=== PATIENT | female | born 1940 | race Caucasian/White ===

== ENCOUNTER → 2018-10-26 | Outpatient (CLI) | payer MEDICARE, OTHER | LOC: MAMMO 10:36 | DX: Z12.31 Encounter for screening mammogram for malignant neoplasm of breast (principal) ==

== ENCOUNTER → 2019-11-01 | Outpatient (CLI) | payer MEDICARE, OTHER | LOC: MAMMO 13:34 | DX: Z12.31 Encounter for screening mammogram for malignant neoplasm of breast (principal) ==

== ENCOUNTER → 2020-10-11 | Day surgery (SDC) | payer MEDICARE, OTHER | LOC: MSO 07:49 | DX: K21.00 Gastro-esophageal reflux disease with esophagitis, without bleeding (principal); K22.2 Esophageal obstruction; J30.9 Allergic rhinitis, unspecified; E78.5 Hyperlipidemia, unspecified; M19.90 Unspecified osteoarthritis, unspecified site; K44.9 Diaphragmatic hernia without obstruction or gangrene; Z85.3 Personal history of malignant neoplasm of breast; Z90.89 Acquired absence of other organs; Z85.828 Personal history of other malignant neoplasm of skin; Z79.899 Other long term (current) drug therapy; Z92.21 Personal history of antineoplastic chemotherapy | CPT/HCPCS: 00731; C1769; J2704; J7120 ==

== ENCOUNTER → 2020-11-01 | Outpatient (CLI) | payer MEDICARE, OTHER | LOC: MAMMO 09:09 | DX: Z12.31 Encounter for screening mammogram for malignant neoplasm of breast (principal); Z85.3 Personal history of malignant neoplasm of breast; Z98.890 Other specified postprocedural states; Z98.82 Breast implant status ==

== ENCOUNTER → 2021-08-14 | Outpatient (CLI) | payer MEDICARE, OTHER ==
[2021-08-14 11:33] LABS: BASO # 0.09 K/mm3 (0.02-0.10); EOS # 0.07 K/mm3 (0.04-0.40); EOS % 0.8 % (1.0-5.0); HEMATOCRIT 51.1 % (37.0-47.0); HEMOGLOBIN 16.1 g/dL (12.5-16.0); LYMPH# 1.67 K/mm3 (1.50-4.00); MEAN CELL VOLUME 92 fl (78-100); MEAN CORPUSCULAR HEMOGLOBIN 29 pg (27-31); MEAN CORPUSCULAR HGB CONC 32 g/dL (33-37); MEAN PLATELET VOLUME 9.1 fl (7.4-10.4); MONO # 0.48 K/mm3 (0.20-0.80); NEU # 6.19 K/mm3 (1.40-6.50); PLATELET COUNT 453 K/mm3 (130-400); RED BLOOD COUNT 5.56 M/mm3 (4.10-5.30); RED CELL DISTRIBUTION WIDTH 12.3 % (11.5-14.5); WHITE BLOOD COUNT 8.5 K/mm3 (4.8-10.8)
[2021-08-14 11:41] LABS: ALBUMIN 4.1 g/dL (3.4-4.8); POTASSIUM 4.5 mmol/L (3.5-5.1); SODIUM 139 mmol/L (136-145)
[2021-08-14 11:43] LABS: CALCIUM 9.5 mg/dL (8.3-10.5)
[2021-08-14 11:44] LABS: GLUCOSE 99 mg/dL (65-105); TOTAL PROTEIN 7.3 g/dL (6.2-8.1)
[2021-08-14 11:45] LABS: CARBON DIOXIDE 26 mmol/L (23-31)
[2021-08-14 11:46] LABS: TOTAL BILIRUBIN 0.6 mg/dL (0.2-1.2)
[2021-08-14 11:49] LABS: AST-SGOT 19 U/L (5-34)
[2021-08-14 11:50] LABS: MAGNESIUM 2.23 mg/dL (1.60-2.60)
[2021-08-14 11:51] LABS: ALT/SGPT 8 U/L (0-55)
[2021-08-14 12:08] LABS: TROPONIN-I < 0.030 ng/mL (<0.030)
== END ==
LOC: LAB 10:21
PROVIDERS: Physician Assistant
DX: R05.9 Cough, unspecified (principal); K29.70 Gastritis, unspecified, without bleeding; K90.9 Intestinal malabsorption, unspecified; R00.8 Other abnormalities of heart beat; R25.2 Cramp and spasm; R55 Syncope and collapse

== ENCOUNTER → 2021-11-11 | Outpatient (CLI) | payer MEDICARE, OTHER | LOC: RAD 10:48 → MAMMO 10:48 | DX: Z13.820 Encounter for screening for osteoporosis (principal); Z12.31 Encounter for screening mammogram for malignant neoplasm of breast; M85.80 Other specified disorders of bone density and structure, unspecified site; Z78.0 Asymptomatic menopausal state ==

== ENCOUNTER → 2021-11-11 | Outpatient (CLI) | payer MEDICARE, OTHER | LOC: MAMMO 10:45 | DX: Z12.31 Encounter for screening mammogram for malignant neoplasm of breast (principal); Z13.820 Encounter for screening for osteoporosis ==

== ENCOUNTER → 2022-04-30 | Outpatient (CLI) | payer MEDICARE, OTHER | LOC: LAB 13:51 | DX: N39.0 Urinary tract infection, site not specified (principal) ==

== ENCOUNTER → 2022-07-31 | Outpatient (CLI) | payer MEDICARE, OTHER ==
[2022-07-31 11:48] LABS: BASO # 0.03 K/mm3 (0.02-0.10); EOS # 0.19 K/mm3 (0.04-0.40); EOS % 2.5 % (1.0-5.0); HEMATOCRIT 46.4 % (37.0-47.0); HEMOGLOBIN 14.5 g/dL (12.5-16.0); LYMPH# 1.68 K/mm3 (1.50-4.00); MEAN CELL VOLUME 94 fl (78-100); MEAN CORPUSCULAR HEMOGLOBIN 29 pg (27-31); MEAN CORPUSCULAR HGB CONC 31 g/dL (33-37); MEAN PLATELET VOLUME 9.2 fl (7.4-10.4); MONO # 0.55 K/mm3 (0.20-0.80); NEU # 5.02 K/mm3 (1.40-6.50); PLATELET COUNT 321 K/mm3 (130-400); RED BLOOD COUNT 4.93 M/mm3 (4.10-5.30); RED CELL DISTRIBUTION WIDTH 12.4 % (11.5-14.5); WHITE BLOOD COUNT 7.5 K/mm3 (4.8-10.8)
[2022-07-31 11:53] LABS: ALBUMIN 4.4 g/dL (3.4-4.8); POTASSIUM 3.8 mmol/L (3.5-5.1)
[2022-07-31 11:54] LABS: CALCIUM 9.2 mg/dL (8.3-10.5)
[2022-07-31 11:55] LABS: TOTAL PROTEIN 7.8 g/dL (6.2-8.1)
[2022-07-31 11:57] LABS: TOTAL BILIRUBIN 0.7 mg/dL (0.2-1.2)
[2022-07-31 12:01] LABS: MAGNESIUM 2.04 mg/dL (1.60-2.60)
[2022-07-31 12:57] LABS: URINE APPEARANCE CLEAR; URINE COLOR YELLOW
[2022-07-31 12:58] LABS: URINE BILIRUBIN NEGATIVE (NEGATIVE); URINE BLOOD 50 ery/uL (NEGATIVE); URINE GLUCOSE NEGATIVE (NEGATIVE); URINE KETONE NEGATIVE (NEGATIVE); URINE LEUKOCYTE ESTERASE 1+ (NEGATIVE); URINE NITRATE NEGATIVE (NEGATIVE); URINE PROTEIN(semi-quant) TRACE (NEGATIVE); URINE UROBILINOGEN NORMAL (NORMAL)
== END ==
LOC: LAB 11:30
PROVIDERS: Physician Assistant
DX: R35.0 Frequency of micturition (principal); R19.7 Diarrhea, unspecified; R42 Dizziness and giddiness; R25.2 Cramp and spasm

== ENCOUNTER → 2023-02-04 | Outpatient (CLI) | payer MEDICARE, OTHER | LOC: LAB 15:38 | DX: R30.0 Dysuria (principal) ==

== ENCOUNTER → 2023-06-10 | Outpatient (CLI) | payer MEDICARE, OTHER | LOC: RAD 09:04 | DX: M25.551 Pain in right hip (principal) ==

== ENCOUNTER 2023-11-17 10:38 | Inpatient (IN) | payer MEDICARE, OTHER ==
[~2023-11-17] VITALS: Ht 154.9 cm; Wt 53.6 kg
[~2023-11-17 10:38] MED LIST: AMIODARONE200 MG PO; CRANBERRY400 M2 PO; CRUTCHES TREATMENT; DITROPAN 5MG TAB5 MG PO; ELIQUIS2.5 MG PO; FAMOTIDINE20 MG PO; MAGNESIUM250 M2 PO; NATURE'S BLE1000 MCG PO; PROTONIX TR40 M1 PO; VITAMIN C PURE500 MG PO; VITAMIN D350 MCG PO
[2023-11-17 14:37] VITALS: BP 97/55
[2023-11-17] MEDS ORDERED: Acetaminophen 325 MG TAB PO PRN (14:45)
[2023-11-17 15:01] LABS: BASO # 0.04 K/mm3 (0.02-0.10); EOS # 0.04 K/mm3 (0.04-0.40); EOS % 0.3 % (1.0-5.0); HEMATOCRIT 32.1 % (37.0-47.0); HEMOGLOBIN 9.8 g/dL (12.5-16.0); LYMPH# 1.74 K/mm3 (1.50-4.00); MEAN CELL VOLUME 96 fl (78-100); MEAN CORPUSCULAR HEMOGLOBIN 29 pg (27-31); MEAN CORPUSCULAR HGB CONC 31 g/dL (33-37); MEAN PLATELET VOLUME 8.6 fl (7.4-10.4); MONO # 0.67 K/mm3 (0.20-0.80); NEU # 9.44 K/mm3 (1.40-6.50); PLATELET COUNT 601 K/mm3 (130-400); RED BLOOD COUNT 3.33 M/mm3 (4.10-5.30); RED CELL DISTRIBUTION WIDTH 13.5 % (11.5-14.5)
[2023-11-17 15:04] LABS: ALBUMIN 3.3 g/dL (3.4-4.8)
[2023-11-17 15:08] LABS: TOTAL BILIRUBIN 0.9 mg/dL (0.2-1.2)
[2023-11-17] MEDS ORDERED: Docusate Sodium 100 MG CAP PO PRN (15:30)
[2023-11-17 16:14] LABS: PH-URINE 5.5 (5.0 - 8.0); URINE APPEARANCE SLIGHTLY CLOUDY (CLEAR); URINE COLOR DARK YELLOW (YELLOW); URINE GLUCOSE NEGATIVE (NEGATIVE); URINE KETONE TRACE (NEGATIVE); URINE PROTEIN(semi-quant) 1+ (NEGATIVE)
[2023-11-17 16:15] LABS: URINE BILIRUBIN 2+ (NEGATIVE); URINE BLOOD NEGATIVE (NEGATIVE); URINE LEUKOCYTE ESTERASE TRACE (NEGATIVE); URINE NITRATE NEGATIVE (NEGATIVE)
[2023-11-17 16:17] LABS: URINE MUCUS PRESENT (NOT PRESENT)
[2023-11-17 17:15] VITALS: BP 97/55
[2023-11-17 18:02] VITALS: BP 97/55
[2023-11-17] MEDS ORDERED: Famotidine 20 MG TAB PO SCH (21:00)
[2023-11-17] MEDS ORDERED: Oxybutynin 5 MG TAB PO SCH (21:00)
[2023-11-17] MEDS ORDERED: Apixaban 5 MG TABLET PO SCH (21:00)
[2023-11-18 05:49] VITALS: BP 117/58
[2023-11-18] MEDS ORDERED: Magnesium Oxide 400 MG TAB PO SCH (09:00)
[2023-11-18] MEDS ORDERED: Ascorbic Acid 500 MG TAB PO SCH (09:00)
[2023-11-18] MEDS ORDERED: Amiodarone 200 MG TAB PO SCH (09:00)
[2023-11-18 17:33] VITALS: BP 114/60
[2023-11-19 05:27] VITALS: BP 137/78
[2023-11-19 08:17] LABS: CALCIUM 8.9 mg/dL (8.3-10.5)
[2023-11-19 17:43] VITALS: BP 129/58
[2023-11-20 05:38] VITALS: BP 134/63
[2023-11-20] MEDS ORDERED: Polyethylene Glycol 3350 Powder 17 GM PACKET PO SCH (09:00)
[2023-11-20 18:00] VITALS: BP 121/55
[2023-11-20] MEDS ORDERED: Apixaban 2.5 MG TABLET PO SCH (21:00)
[2023-11-21 05:40] VITALS: BP 135/66
[2023-11-21 18:00] VITALS: BP 135/66
[2023-11-22 05:48] VITALS: BP 116/66
[2023-11-22 17:30] VITALS: BP 113/52
[2023-11-23 05:38] VITALS: BP 126/55
[2023-11-23 17:30] VITALS: BP 140/76
[2023-11-24 05:29] VITALS: BP 125/53
[2023-11-24 15:38] VITALS: BP 113/51
[2023-11-24] MEDS ORDERED: PETROLATUM TP PRN (16:45)
[2023-11-25 05:48] VITALS: BP 146/63
[2023-11-25 06:41] LABS: BASO # 0.04 K/mm3 (0.02-0.10); EOS # 0.18 K/mm3 (0.04-0.40); EOS % 1.9 % (1.0-5.0); HEMATOCRIT 34.2 % (37.0-47.0); HEMOGLOBIN 10.7 g/dL (12.5-16.0); LYMPH# 1.74 K/mm3 (1.50-4.00); MEAN CELL VOLUME 96 fl (78-100); MEAN CORPUSCULAR HEMOGLOBIN 30 pg (27-31); MEAN CORPUSCULAR HGB CONC 31 g/dL (33-37); MEAN PLATELET VOLUME 8.5 fl (7.4-10.4); MONO # 0.53 K/mm3 (0.20-0.80); NEU # 6.86 K/mm3 (1.40-6.50); PLATELET COUNT 566 K/mm3 (130-400); RED BLOOD COUNT 3.57 M/mm3 (4.10-5.30); RED CELL DISTRIBUTION WIDTH 14.2 % (11.5-14.5); WHITE BLOOD COUNT 9.4 K/mm3 (4.8-10.8)
[2023-11-25 06:59] LABS: ALBUMIN 3.2 g/dL (3.4-4.8)
[2023-11-25 07:01] LABS: CALCIUM 8.5 mg/dL (8.3-10.5)
[2023-11-25 07:02] LABS: TOTAL PROTEIN 5.8 g/dL (6.2-8.1)
[2023-11-25 07:04] LABS: TOTAL BILIRUBIN 0.6 mg/dL (0.2-1.2)
[2023-11-25 18:00] VITALS: BP 134/72
[2023-11-26 05:45] VITALS: BP 148/67
[2023-11-26 15:20] VITALS: BP 134/76
[2023-11-27 06:00] VITALS: BP 123/60
[2023-11-27 17:11] VITALS: BP 118/50
[2023-11-28 06:00] VITALS: BP 136/59
[2023-11-28 18:13] VITALS: BP 128/71
[2023-11-29 05:57] VITALS: BP 142/57
[2023-11-29 17:09] VITALS: BP 114/48
[2023-11-30 05:32] VITALS: BP 129/61
[2023-11-30 18:00] VITALS: BP 132/74
[2023-12-01 05:56] VITALS: BP 156/71
[2023-12-01 16:01] VITALS: BP 131/61
[2023-12-02 05:48] LABS: BASO # 0.03 K/mm3 (0.02-0.10); EOS # 0.15 K/mm3 (0.04-0.40); EOS % 1.7 % (1.0-5.0); HEMATOCRIT 40.1 % (37.0-47.0); HEMOGLOBIN 12.2 g/dL (12.5-16.0); MEAN CELL VOLUME 98 fl (78-100); MEAN CORPUSCULAR HEMOGLOBIN 30 pg (27-31); MEAN CORPUSCULAR HGB CONC 30 g/dL (33-37); MEAN PLATELET VOLUME 8.8 fl (7.4-10.4); MONO # 0.46 K/mm3 (0.20-0.80); NEU # 6.43 K/mm3 (1.40-6.50); PLATELET COUNT 427 K/mm3 (130-400); RED BLOOD COUNT 4.08 M/mm3 (4.10-5.30); RED CELL DISTRIBUTION WIDTH 14.4 % (11.5-14.5)
[2023-12-02 05:56] LABS: ALBUMIN 3.5 g/dL (3.4-4.8)
[2023-12-02 05:57] LABS: CALCIUM 8.9 mg/dL (8.3-10.5)
[2023-12-02 05:59] LABS: TOTAL PROTEIN 6.1 g/dL (6.2-8.1)
[2023-12-02 06:00] LABS: TOTAL BILIRUBIN 0.5 mg/dL (0.2-1.2)
[2023-12-02 06:07] VITALS: BP 151/70
[2023-12-02 17:04] VITALS: BP 171/73
[2023-12-02 22:08] VITALS: BP 136/67
[2023-12-03 05:49] VITALS: BP 157/73
[2023-12-03 17:06] VITALS: BP 137/67
[2023-12-04 05:45] VITALS: BP 144/75
[2023-12-04 18:00] VITALS: BP 138/67
[2023-12-05 06:09] VITALS: BP 144/64
[2023-12-05 17:14] VITALS: BP 137/74
[2023-12-06 05:49] VITALS: BP 158/62
[2023-12-06 17:13] VITALS: BP 160/73
[2023-12-07 06:09] VITALS: BP 151/68
[2023-12-07 17:26] VITALS: BP 125/72
[2023-12-08 06:13] VITALS: BP 144/56
[2023-12-08 17:29] VITALS: BP 124/69
[2023-12-09 05:28] VITALS: BP 164/72
[2023-12-09 06:13] LABS: BASO # 0.03 K/mm3 (0.02-0.10); EOS # 0.15 K/mm3 (0.04-0.40); EOS % 1.9 % (1.0-5.0); HEMATOCRIT 38.6 % (37.0-47.0); HEMOGLOBIN 12.2 g/dL (12.5-16.0); LYMPH# 2.13 K/mm3 (1.50-4.00); MEAN CELL VOLUME 97 fl (78-100); MEAN CORPUSCULAR HEMOGLOBIN 31 pg (27-31); MEAN CORPUSCULAR HGB CONC 32 g/dL (33-37); MEAN PLATELET VOLUME 9.2 fl (7.4-10.4); MONO # 0.47 K/mm3 (0.20-0.80); NEU # 5.12 K/mm3 (1.40-6.50); PLATELET COUNT 314 K/mm3 (130-400); RED BLOOD COUNT 3.99 M/mm3 (4.10-5.30); RED CELL DISTRIBUTION WIDTH 14.2 % (11.5-14.5); WHITE BLOOD COUNT 7.9 K/mm3 (4.8-10.8)
[2023-12-09 06:20] LABS: ALBUMIN 3.4 g/dL (3.4-4.8)
[2023-12-09 06:22] LABS: CALCIUM 8.9 mg/dL (8.3-10.5)
[2023-12-09 06:23] LABS: TOTAL PROTEIN 5.8 g/dL (6.2-8.1)
[2023-12-09 06:25] LABS: TOTAL BILIRUBIN 0.5 mg/dL (0.2-1.2)
== END 2023-12-09 09:28 | disposition home or self-care (01) | DRG 563 ==
LOC: MED/SURG 10:38
PROVIDERS: Family Medicine; Physician Assistant; ADMIT Family Medicine
DX: S82.141A Displaced bicondylar fracture of right tibia, initial encounter for closed fracture (principal); I48.91 Unspecified atrial fibrillation; K21.9 Gastro-esophageal reflux disease without esophagitis; Z66 Do not resuscitate

== ENCOUNTER → 2024-03-30 | Outpatient (CLI) | payer MEDICARE, OTHER ==
[2024-03-30 14:02] LABS: BASO # 0.05 K/mm3 (0.02-0.10); EOS # 0.09 K/mm3 (0.04-0.40); EOS % 0.7 % (1.0-5.0); HEMATOCRIT 45.4 % (37.0-47.0); HEMOGLOBIN 14.2 g/dL (12.5-16.0); LYMPH# 1.85 K/mm3 (1.50-4.00); MEAN CELL VOLUME 93 fl (78-100); MEAN CORPUSCULAR HEMOGLOBIN 29 pg (27-31); MEAN CORPUSCULAR HGB CONC 31 g/dL (33-37); MEAN PLATELET VOLUME 9.3 fl (7.4-10.4); MONO # 0.62 K/mm3 (0.20-0.80); NEU # 10.33 K/mm3 (1.40-6.50); PLATELET COUNT 378 K/mm3 (130-400); RED BLOOD COUNT 4.91 M/mm3 (4.10-5.30); RED CELL DISTRIBUTION WIDTH 13.4 % (11.5-14.5)
[2024-03-30 14:05] LABS: ALBUMIN 4.4 g/dL (3.4-4.8)
[2024-03-30 14:06] LABS: CALCIUM 9.5 mg/dL (8.3-10.5)
[2024-03-30 14:08] LABS: TOTAL PROTEIN 7.7 g/dL (6.2-8.1)
[2024-03-30 14:10] LABS: TOTAL BILIRUBIN 0.5 mg/dL (0.2-1.2)
== END ==
LOC: LAB 13:42
PROVIDERS: Physician Assistant
DX: Z13.29 Encounter for screening for other suspected endocrine disorder (principal); E78.5 Hyperlipidemia, unspecified; K90.9 Intestinal malabsorption, unspecified

== ENCOUNTER → 2024-06-27 | Outpatient (CLI) | payer MEDICARE, OTHER | LOC: LAB 09:46 | DX: N39.0 Urinary tract infection, site not specified (principal) ==

== ENCOUNTER → 2024-07-16 | Outpatient (REF) | payer MEDICARE, OTHER | LOC: LAB 10:45 | DX: N39.0 Urinary tract infection, site not specified (principal) ==